=== PATIENT | female | born 2000 | race Caucasian/White ===

== ENCOUNTER 2022-01-30 11:15 | Emergency (ER) | payer OTHER, SELFPAY ==
[~2022-01-30] VITALS: Ht 162.6 cm; Wt 140.7 kg
[2022-01-30 11:15] VITALS: BP 137/89
[2022-01-30] MEDS ORDERED: CIPR-249 PO (14:47)
[2022-01-30] MEDS ORDERED: METR-265 PO (14:47)
== END 2022-01-30 15:01 | disposition home or self-care (01) ==
LOC: M ED 11:15
DX: K61.0 Anal abscess (principal); I10 Essential (primary) hypertension; J45.909 Unspecified asthma, uncomplicated; Z86.14 Personal history of Methicillin resistant Staphylococcus aureus infection; Z88.0 Allergy status to penicillin; Z88.1 Allergy status to other antibiotic agents; Z88.2 Allergy status to sulfonamides